=== PATIENT | male | born 1955 | race Hispanic/Latino ===

== ENCOUNTER 2018-07-19 04:51 | Emergency (ER) | payer OTHER ==
[2018-07-19] MEDS ORDERED: CLONIDINE HCL 0.1 MG TABLET ONE (05:45)
== END 2018-07-19 06:29 | disposition home or self-care (01) ==
LOC: EDH 04:51
DX: E11.9 Type 2 diabetes mellitus without complications (principal); M54.5 Low back pain; I10 Essential (primary) hypertension; Z88.0 Allergy status to penicillin